=== PATIENT | female | born 1960 | race Caucasian/White ===

== ENCOUNTER 2025-02-09 15:30 | Emergency (ER) | payer OTHER ==
[~2025-02-09] VITALS: Ht 167.6 cm; Wt 100.5 kg
[2025-02-09 20:00] LABS: BASOPHILS % (AUTO) 0.6 % (0-1); EOSINOPHILS # (AUTO) 0.1 X10'3 (0-0.9); EOSINOPHILS % (AUTO) 2.7 % (0-6); HEMATOCRIT 43.6 % (35.0-45.0); HEMOGLOBIN 14.1 g/dl (12.0-16.0); LYMPHOCYTES # (AUTO) 2.4 X10'3 (1.1-4.8); LYMPHOCYTES % (AUTO) 45.6 % (21-51); MEAN CORPUSCULAR HEMOGLOBIN 22.4 PG (27.0-31.0); MEAN CORPUSCULAR HGB CONC 32.3 g/dL (33.0-36.5); MEAN CORPUSCULAR VOLUME 69.3 FL (78-98); MONOCYTES # (AUTO) 0.4 X10'3 (0-0.9); MONOCYTES % (AUTO) 7.4 % (2-12); NEUTROPHILS # (AUTO) 2.3 X10'3 (1.8-7.7); NEUTROPHILS % (AUTO) 43.7 % (42-75); PLATELET COUNT 203 X10'3 (140-440); RED BLOOD COUNT 6.29 X10'6 (4.20-5.60); RED CELL DISTRIBUTION WIDTH 15.9 % (11.5-14.5); WHITE BLOOD COUNT 5.3 X10'3 (4.5-11.0)
[2025-02-09 20:19] LABS: ANION GAP 9 (8-16); BLOOD UREA NITROGEN 19 MG/DL (7-18); BUN/CREATININE RATIO 17.8 (10.0-20.0); CALCIUM 9.4 MG/DL (8.5-10.1); CHLORIDE 104 MMOL/L (99-107); CREATININE 1.07 MG/DL (0.40-0.90); GLUCOSE 138 MG/DL (70-104); POTASSIUM 4.1 MMOL/L (3.5-5.1); PRO BRAIN NATRIURETIC PEPTIDE < 30 PG/ML (0-125); SODIUM 138 MMOL/L (135-145); THYROID STIMULATING HORMONE 2.68 ulU/ml (0.34-4.50); eCRCL 50 ML/MIN; eGFR 52 ML/MIN
[2025-02-09 21:06] VITALS: BP 126/79; PULSE 98; RESP 18; TEMP 98; O2SAT 100
== END 2025-02-09 21:09 | disposition home or self-care (01) ==
LOC: ER 15:31
DX: R42 Dizziness and giddiness (principal); R20.2 Paresthesia of skin; R11.0 Nausea; E11.9 Type 2 diabetes mellitus without complications; E78.5 Hyperlipidemia, unspecified; Z88.1 Allergy status to other antibiotic agents; Z88.2 Allergy status to sulfonamides; Z88.5 Allergy status to narcotic agent
CPT/HCPCS: 80048; 82948; 83880; 84443; 84484; 85025; 93005; 99284